=== PATIENT | male | born 1940 | race Caucasian/White ===

== ENCOUNTER 2023-09-09 06:12 | Day surgery (SDC) | payer OTHER ==
[2023-09-02 09:28] LABS: HEMATOCRIT 47.6 % (39.0-48.0); HEMOGLOBIN 15.6 g/dL (13-16.00); MEAN CELL VOLUME 85.3 fL (80.0-100.00); MEAN CORPUSCULAR HGB CONC 32.8 g/dl (32.0-36.0); PLATELET COUNT 216 K/uL (150-450); RED BLOOD COUNT 5.58 M/uL (4.00-6.00)
[2023-09-02 09:37] LABS: URINE APPEARANCE Clear; URINE BILIRRUBIN Negative (NEGATIVE); URINE BLOOD Negative; URINE COLOR Yellow; URINE LEUKOCYTE Negative; URINE NITRATE Negative; URINE PROTEIN Negative (NEGATIVE); URINE UROBILINOGEN 0.2 E.U./dl
[2023-09-02 09:41] LABS: URINE BACTERIA 8.7 uL (0.0-1933)
[2023-09-02 09:54] LABS: INR 0.97; PARTIAL THROMBOPLASTIN TIME 25.1 SECONDS (22.0-34.0); PROTHROMBIN TIME 10.2 SECONDS (9.0-11.5)
[2023-09-02 10:04] LABS: ALBUMIN 4.1 gm/dL (3.4-5.0); BILIRUBIN TOTAL 0.86 mg/dL (0.3-1.2); CALCIUM 9.7 mg/dL (8.5-10.1); CREATININE SERUM 1.47 mg/dL (0.70-1.30); GFR 45.75; GLOBULINA 3.5 G/DL (2.4-3.5); POTASSIUM 5.25 mEq/L (3.5-5.1); TOTAL PROTEIN 7.6 gm/dL (6.4-8.2)
[2023-09-02 10:24] LABS: URINE EPITHELIAL CELLS 0.9 uL (0.0-38.8); URINE GLUCOSE >=1000 MG/DL (NEGATIVE); URINE RBC 0.4 uL (0.0-20.8)
[~2023-09-09] VITALS: Ht 175.3 cm; Wt 67.6 kg
[~2023-09-09 06:12] MED LIST: LIPITOR20 MG PO; LISINOPRIL20 MG PO; NORVASC5 MG PO; PROTONIX40 MG PO; TAMS0.4C PO; ZYLOPRIM100 M1 PO
== END 2023-09-09 16:35 | disposition home or self-care (01) ==
LOC: CIR.AMB 06:12
PROVIDERS: ATTEND Specialist
DX: K42.9 Umbilical hernia without obstruction or gangrene (principal); I10 Essential (primary) hypertension; Z91.013 Allergy to seafood; Z88.6 Allergy status to analgesic agent; Z20.822 Contact with and (suspected) exposure to COVID-19